=== PATIENT | female | born 1995 | race Caucasian/White ===

== ENCOUNTER → 2017-03-06 | Outpatient (CLI) | payer OTHER ==
[~2017-03-06] MED LIST: PROVERA2.5 MG; XULANE PATCH1 EACH; ZANTAC150 MG PO
== END | disposition home or self-care (01) ==
LOC: PPH VACUNA 15:08
DX: Z23 Encounter for immunization (principal)

== ENCOUNTER 2017-09-19 08:35 | Outpatient (CLI) | payer OTHER | END 2017-09-19 08:48 | disposition home or self-care (01) | LOC: RAD 08:35 | DX: M12.88 Other specific arthropathies, not elsewhere classified, other specified site (principal) ==

== ENCOUNTER 2019-12-14 13:43 | Emergency (ER) | payer OTHER ==
[~2019-12-14] VITALS: Ht 152.4 cm; Wt 58.1 kg
[2019-12-14] MEDS ORDERED: PROTONIX40 MG (14:03)
[2019-12-14] MEDS ORDERED: LEVAQUIN500 MG (14:04)
[2019-12-14] MEDS ORDERED: DOLOGESIC 500-1 EACH (14:04)
[2019-12-14] MEDS ORDERED: INTESTINEX680 M2 PO (22:59)
[2019-12-14] MEDS ORDERED: AZITHROMYCIN250 MG PO (22:59)
[2019-12-14] MEDS ORDERED: MUCINEX DM ER1 EAC1 PO (22:59)
[2019-12-14] MEDS ORDERED: PEPCID AC20 MG PO (22:59)
[2019-12-14] MEDS ORDERED: DECADRON4 MG PO (22:59)
[2019-12-14] MEDS ORDERED: ACETAMINOPHEN650 MG PO (22:59)
== END 2019-12-14 23:12 | disposition home or self-care (01) ==
LOC: ER 13:43
DX: B34.9 Viral infection, unspecified (principal); G44.209 Tension-type headache, unspecified, not intractable; Z03.818 Encounter for observation for suspected exposure to other biological agents ruled out; R06.02 Shortness of breath